=== PATIENT | male | born 1970 | race Caucasian/White ===

== ENCOUNTER 2022-02-12 19:58 | Emergency (ER) | payer OTHER ==
[~2022-02-12] VITALS: Ht 193 cm; Wt 120.0 kg
[2022-02-12] MEDS ORDERED: PRILOSEC OTC20 MG PO (20:11)
== END 2022-02-12 23:23 | disposition home or self-care (01) ==
LOC: ED 19:58
DX: K55.069 Acute infarction of intestine, part and extent unspecified (principal); K80.20 Calculus of gallbladder without cholecystitis without obstruction; K57.30 Diverticulosis of large intestine without perforation or abscess without bleeding
CPT/HCPCS: 36415; 74177; 80053; 81001; 83690; 85025; 99284-25; J7030; Q9967